=== PATIENT | male | born 1950 | race Caucasian/White ===

== ENCOUNTER → 2016-10-31 | Outpatient (CLI) | payer MEDICARE ==
[2016-10-31 11:13] LABS: HEMOGLOBIN 15.5 gm/dl (14.0-17.5); RED BLOOD COUNT 5.1 M/UL (4.20-5.50)
[2016-10-31 11:43] LABS: BUN/CREATININE RATIO 15 (0-10)
== END ==
LOC: LAB 10:42
PROVIDERS: Internal Medicine Hematology & Oncology
DX: Z08 Encounter for follow-up examination after completed treatment for malignant neoplasm (principal); Z85.038 Personal history of other malignant neoplasm of large intestine
CPT/HCPCS: 36415; 80053; 82378; 85025

== ENCOUNTER → 2021-04-28 | Day surgery (SDC) | payer MEDICARE ==
[~2021-04-28] MED LIST: AZELASTINE137 MCG/0.; BREO ELLIPTA 21 EACH INH; BUDESONIDE-FO10.2 G1 INH; CLARITIN10 MG PO; EPIPEN 2-P0.3 MG/0.3 INJ; FLONASE 0.05% N16 GM; HUMIBID LA TAB600 MG PO; NORCO 5-325 TA1 EACH PO; PEPCID20 MG PO; SINGULAIR10 MG PO; VENTOLIN HFA 66.7 GM INH
== END | disposition home or self-care (01) ==
LOC: OR 06:06
DX: Z12.11 Encounter for screening for malignant neoplasm of colon (principal); D12.0 Benign neoplasm of cecum; D12.2 Benign neoplasm of ascending colon; Z86.010 Personal history of colon polyps; Z85.038 Personal history of other malignant neoplasm of large intestine; J45.909 Unspecified asthma, uncomplicated; Z20.822 Contact with and (suspected) exposure to COVID-19; K21.9 Gastro-esophageal reflux disease without esophagitis; Z88.0 Allergy status to penicillin; Z88.6 Allergy status to analgesic agent; K57.30 Diverticulosis of large intestine without perforation or abscess without bleeding; K62.1 Rectal polyp
CPT/HCPCS: J2704; J7040

== ENCOUNTER → 2021-12-14 | Outpatient (CLI) | payer MEDICARE | LOC: HEART 5 08:37 | DX: R00.2 Palpitations (principal); I20.8 Other forms of angina pectoris; R06.02 Shortness of breath | CPT/HCPCS: 78452; 93306; A9502; J2785 ==

== ENCOUNTER → 2022-02-14 | Outpatient (CLI) | payer MEDICARE | LOC: KOH-I 02-11 09:00 | DX: J32.9 Chronic sinusitis, unspecified (principal); J32.4 Chronic pansinusitis | CPT/HCPCS: 70486 ==